=== PATIENT | female | born 1995 ===

== ENCOUNTER 2022-05-10 14:08 | Inpatient (IN) | payer OTHER ==
[2022-05-10 15:37] VITALS: BMI 36.8
[2022-05-10] MEDS ORDERED: FENTANYL/BUPIVACAINE/NS/PF - PCEA - 50 ML DISP.SYRIN EP ONE (15:55)
[2022-05-10] MEDS ORDERED: OXYTOCIN 20 UNITS in 0.9% NS 20 UNIT/1,000 ML INFUS.BAG IV ONE (16:00)
[2022-05-10] MEDS ORDERED: LIDOCAINE HCL 1% PRESERVATIVE FREE - 30ML VIAL ONE (16:01)
[2022-05-10 16:16] LABS: BASO % 0.6 % (0-2.0); EOS % 0.8 % (0-4.5); HEMATOCRIT 33.7 % (32.4-45.2); HEMOGLOBIN 10.8 GM/dL (10.7-15.3); LYMPH % 18.7 % (8-40); MCH 25.9 pg (25.7-33.7); MCHC 32.1 g/dl (32.0-36.0); MEAN CELL VOLUME 80.5 fl (80-96); MEAN PLT VOLUME 9.8 fl (7.5-11.1); MONO % 9.2 % (3.8-10.2); NEUT % 70.7 % (42.8-82.8); PLATELET COUNT 226 10^3/uL (134-434); RBC 4.19 M/mm3 (3.60-5.2); RDW 14.9 % (11.6-15.6); WHITE BLOOD COUNT 11.2 K/mm3 (4.0-10.0)
[2022-05-10 16:22] LABS: INR 0.96 (0.83-1.09)
[2022-05-10 16:25] LABS: ACTIVATED PTT 30.7 SECONDS (25.2-36.5)
[2022-05-10 16:51] LABS: BLOOD UREA NITROGEN 7.4 mg/dL (7-18)
[2022-05-10 16:54] LABS: CREATININE 0.7 mg/dL (0.55-1.3)
[2022-05-10 17:17] LABS: CORD BASE EXCESS -5.1 mmol/L (0-2); CORD BASE EXCESS -5.2 mmol/L (0-2); CORD HCO3 21.2 mmHg (20-29); CORD HCO3 21.4 mmHg (20-29); CORD PCO2 44.3 mmHg (30-78); CORD PCO2 44.7 mmHg (30-78); CORD pH 7.297 (7.14-7.44); CORD pH 7.298 (7.14-7.44)
[2022-05-10] MEDS ORDERED: OXYTOCIN 20 UNITS in 0.9% NS 20 UNIT/1,000 ML INFUS.BAG IV SCH (17:30)
[2022-05-10] MEDS ORDERED: METHYLERGONOVINE MALEATE 0.2 MG/1 ML AMP IM PRN (17:30)
[2022-05-10] MEDS ORDERED: ELECTROLYTE-148 SOLN 1,000 ML IV SCH (17:30)
[2022-05-10] MEDS ORDERED: WITCH HAZEL 50% (TUCKS) 40 PAD/JAR PAD TP PRN (17:30)
[2022-05-10] MEDS ORDERED: BENZOCAINE 20% 57 GM BOTTLE TP PRN (17:30)
[2022-05-10] MEDS ORDERED: BISACODYL 10 MG SUPP.RECT RC PRN (17:30)
[2022-05-10] MEDS ORDERED: BENZOCAINE 28 GM HEMORRHOIDAL OINTMENT TP PRN (17:30)
[2022-05-10] MEDS: IBUPROFEN 600 MG TABLET (FP) PO PRN (17:50)
[2022-05-10] MEDS ORDERED: IBUPROFEN 600 MG TABLET (FP) PO ONE (17:51)
[2022-05-10 17:53] LABS: HIV INTERPRETATION NEGATIVE (NEGATIVE)
[2022-05-11] MEDS: ACETAMINOPHEN 325 MG TABLET (FP) PO PRN ×2 (03:46→18:10)
[2022-05-11 08:30] LABS: BASO % 0.3 % (0-2.0); EOS % 0.4 % (0-4.5); HEMATOCRIT 27.8 % (32.4-45.2); HEMOGLOBIN 9.6 GM/dL (10.7-15.3); LYMPH % 16.4 % (8-40); MCH 27.6 pg (25.7-33.7); MCHC 34.5 g/dl (32.0-36.0); MEAN CELL VOLUME 80.1 fl (80-96); MEAN PLT VOLUME 9.3 fl (7.5-11.1); MONO % 8.6 % (3.8-10.2); NEUT % 74.3 % (42.8-82.8); PLATELET COUNT 182 10^3/uL (134-434); RBC 3.47 M/mm3 (3.60-5.2); RDW 14.8 % (11.6-15.6)
[2022-05-11] MEDS ORDERED: SIMETHICONE 80 MG TAB.CHEW (FP) PO PRN (10:04)
[2022-05-11 13:13] LABS: POC NITRAZINE NEG
[2022-05-11] MEDS ORDERED: SENNOSIDES/DOCUSATE COMBO (SENNA PLUS) TABLET (UD) PO PRN (22:00)
[2022-05-12] MEDS: IBUPROFEN 600 MG TABLET (FP) PO PRN (02:56)
[2022-05-12 10:46] VITALS: BP 134/76; PULSE 67; RESP 16; TEMP 98.3
== END 2022-05-12 14:05 | disposition home or self-care (01) | DRG 807 ==
LOC: JDEL 14:08 → JLDR 15:20 → J3W 21:00
PROVIDERS: ADMIT Obstetrics & Gynecology; ATTEND Obstetrics & Gynecology
PROC: 10E0XZZ Delivery of Products of Conception, External Approach (ICD-10-PCS; principal; 2022-05-10)
PROC: 0KQM0ZZ Repair Perineum Muscle, Open Approach (ICD-10-PCS; 2022-05-10)
PROC: 0W8NXZZ Division of Female Perineum, External Approach (ICD-10-PCS; 2022-05-10)
DX: O34.211 Maternal care for low transverse scar from previous cesarean delivery (principal); Z37.0 Single live birth; Z3A.37 37 weeks gestation of pregnancy
CPT/HCPCS: 36415; 36600; 59409; 80048; 82803; 83986-QW; 85025; 85610; 85730; 86780; 86850; 86900; 86901; 87389; C9803-CS; U0003; U0005